=== PATIENT | female | born 1955 | race African-American/Black ===

== ENCOUNTER 2017-05-03 08:25 | Emergency (ER) | payer SELFPAY ==
[~2017-05-03] VITALS: Ht 170.2 cm; Wt 80.0 kg
[~2017-05-03 08:25] MED LIST: BIPOLAR MED; CIPR500T4 PO; HYPERTENSION MED; METHY5 PO; METR-1 PO
[2017-05-03 08:39] VITALS: BP 116/69; PULSE 88; RESP 19; TEMP 99.2; O2SAT 97
[2017-05-03] MEDS ORDERED: LAMO25 PO (08:46)
[2017-05-03] MEDS ORDERED: CITA40TA4 PO (08:46)
[2017-05-03] MEDS ORDERED: METHY5 PO (08:46)
[2017-05-03] MEDS ORDERED: ACETAMINOPHEN/HYDROcodone 325 MG/5 MG TAB PO ONE (09:00)
--- NOTE | 2017-05-03 09:18 | RADRPT ---
EXAM DATE/TIME: 05/03/2017 09:11 [facility] COMPARISON: No previous studies available for comparison. INDICATIONS : Right wrist pain after falling on lateral side. MEDICAL HISTORY : None. SURGICAL HISTORY : None. ENCOUNTER: Initial ACUITY: 1 day PAIN SCORE: 9/10 LOCATION: Right wrist FINDINGS: Three view examination of the right wrist demonstrates no soft tissue swelling, dislocation, or fract ure. The carpal bones are in normal alignment. The joint spaces are maintained. Bony mineralizatio n is normal. CONCLUSION: No definite fracture. Hira Wyman MD on May 03, 2017 at 9:17 Board Certified Radiologist. This report was verified electronically.
--- NOTE | 2017-05-03 09:18 | RADRPT ---
EXAM DATE/TIME: 05/03/2017 09:07 [facility] COMPARISON: No previous studies available for comparison. INDICATIONS : Right forearm pain after falling. MEDICAL HISTORY : None. SURGICAL HISTORY : None. ENCOUNTER: Initial ACUITY: 1 day PAIN SCORE: 8/10 LOCATION: Right forearm FINDINGS: Two view examination of the right forearm demonstrates minimal lucency involving the distal radius. N o proximal or mid shaft fractures of the radius or ulna. Bony mineralization is normal. The soft ti ssue structures are intact. CONCLUSION: 1. Minimal lucency involving the distal radius appears to be related to artifact. 2. No definite fracture. Hira Wyman MD on May 03, 2017 at 9:15 Board Certified Radiologist. This report was verified electronically.
--- NOTE | 2017-05-03 09:37 | RADRPT ---
EXAM DATE/TIME: 05/03/2017 09:17 [facility] COMPARISON: No previous studies available for comparison. INDICATIONS : Fall down stairs today. RADIATION DOSE: 33.34 CTDIvol (mGy) MEDICAL HISTORY : Hypertension. SURGICAL HISTORY : None. ENCOUNTER: Initial ACUITY: 1 day PAIN SCALE: 5/10 LOCATION: Left occipital TECHNIQUE: Multiple contiguous axial images were obtained of the head. Using automated exposure control and adj ustment of the mA and/or kV according to patient size, radiation dose was kept as low as reasonably a chievable to obtain optimal diagnostic quality images. DICOM format image data is available electro nically for review and comparison. FINDINGS: CEREBRUM: The ventricles are normal for age. No evidence of midline shift, mass lesion, hemorrhage or acute in farction. No extra-axial fluid collections are seen. POSTERIOR FOSSA: The cerebellum and brainstem are intact. The 4th ventricle is midline. The cerebellopontine angle i s unremarkable. EXTRACRANIAL: The visualized portion of the orbits is intact. SKULL: The calvaria is intact. No evidence of skull fracture. CONCLUSION: Normal examination. Shawn Gomez MD on May 03, 2017 at 9:34 Board Certified Radiologist. This report was verified electronically.
--- NOTE | 2017-05-03 09:51 | RADRPT ---
EXAM DATE/TIME: 05/03/2017 09:17 [facility] COMPARISON: No previous studies available for comparison. INDICATIONS : Fall down stairs today. Neck pain. RADIATION DOSE: 14.98 CTDIvol (mGy) MEDICAL HISTORY : Hypertension. SURGICAL HISTORY : None. ENCOUNTER: Initial ACUITY: 1 day PAIN SCALE: 5/10 LOCATION: neck TECHNIQUE: Volumetric scanning of the cervical spine was performed. Multiplanar reconstructions in the sagittal, coronal and oblique axial planes were performed. Using automated exposure control and adjustment o f the mA and/or kV according to patient size, radiation dose was kept as low as reasonably achievable to obtain optimal diagnostic quality images. DICOM format image data is available electronically f or review and comparison. FINDINGS: Cervical spine alignment is satisfactory. There is no evidence of spine fracture. No bony canal or fo raminal compromise is noted. There is prominent multilevel posterior facet arthropathy. No evidence o f paraspinal hematoma. CONCLUSION: No acute bony injury in the cervical spine. Shawn Gomez MD on May 03, 2017 at 9:48 Board Certified Radiologist. This report was verified electronically.
--- NOTE | 2017-05-03 10:03 | PD ---
HPI Chief Complaint: Fall Time Seen by Provider: 08:50 Travel History International Travel<30 days: No Contact w/Intl Traveler<30days: Yes Name of Country Traveled to: [place] Traveled to known affect area: No History of Present Illness HPI 62-year-old female came to the emergency room with history of trip and fall while she was walking on a curb. She fell with right hand outstretched and is complaining of right wrist pain. She says she also bumped her head on the side rail and complaining of some headache and back of the neck pain. She was put in a c-collar. No loss of consciousness. She remembers the event. She is not on any blood thinners. [facility] Past Medical History Narrative Medical List of her past medical, surgical, social and family history is reviewed from the nursing note. ADD: Yes Bipolar Disorder: Yes Depression: Yes Diminished Hearing: No Hypertension: Yes Influenza Vaccination: No Menopausal: Yes Past Surgical History Surgical History: No Previous Surgery Social History Alcohol Use: Yes (2 glasses of wine/night) Tobacco Use: Yes (e-cig) Substance Use: No Allergies-Medications (Allergen,Severity, Reaction): Uncoded Allergies: unknow antibiotic (Allergy, Mild, Itching, 05/03/17) Comments List of her allergies reviewed from the nursing note. Reported Meds & Prescriptions Reported Meds & Active Scripts Active Reported Ritalin IR (Methylphenidate HCl) 5 Mg Tab 5 Mg PO BIDAC Lamictal (Lamotrigine) 25 Mg Tab 25 Mg PO DAILY Citalopram (Citalopram Hydrobromide) 40 Mg Tab 40 Mg PO DAILY [Hypertension Med] Narrative Medication List of her home medications reviewed from the nursing note. Review of Systems Except as stated in HPI: all other systems reviewed are Neg Physical Exam Narrative GENERAL: Awake, alert, moderate distress, Lyon collar SKIN: Focused skin assessment warm/dry. HEAD: Atraumatic. Normocephalic. EYES: Pupils equal and round. No scleral icterus. No injection or drainage. ENT: No nasal bleeding or discharge. Mucous membranes pink and moist. NECK: Trachea midline. No JVD. CARDIOVASCULAR: Regular rate and rhythm. No murmur appreciated. RESPIRATORY: No accessory muscle use. Clear to auscultation. Breath sounds equal bilaterally. GASTROINTESTINAL: Abdomen soft, non-tender, nondistended. Hepatic and splenic margins not palpable. MUSCULOSKELETAL: No obvious deformities. No clubbing. No cyanosis. No edema. Tenderness on the distal radial aspect and the wrist joint. His range of motion due to the pain at the wrist joint. Distal neurovascular intact. NEUROLOGICAL: Awake and alert. No obvious cranial nerve deficits. Motor grossly within normal limits. Normal speech. PSYCHIATRIC: Appropriate mood and affect; insight and judgment normal. Data Data Last Documented VS Vital Signs Date Time Temp Pulse Resp B/P (MAP) Pulse Ox O2 Delivery O2 Flow Rate FiO2 05/03/17 10:22 05/03/17 08:39 99.2 88 19 97 Room Air Orders Orders Ct Brain W/O Iv Contrast(Rout) (05/03/17 ) Ct Cerv Spine W/O Contrast (05/03/17 ) Wrist, Complete ([id number]) (05/03/17 ) Acetamin-Hydrocod 325-5 Mg ([place] 5-325 (05/03/17 09:00) Forearm (2vws) (05/03/17 ) Splinting (05/03/17 ) Fiberglass Sug[place]ong Sp Ad Arm (05/03/17 ) Sling Cradle Arm (05/03/17 ) Collar Lyon (05/03/17 ) Collar [place] (05/03/17 ) MDM Medical Decision Making Medical Screen Exam Complete: Yes Emergency Medical Condition: Yes Medical Record Reviewed: Yes Differential Diagnosis Wrist fracture, cervical fracture, intracranial bleed, wrist strain Narrative Course 10:16 AM patient will get a splint for the wrist. She will be discharged home Procedures EKG Prior to Arrival: No Diagnosis Primary Impression: Fall Qualified Codes: W19.XXXA - Unspecified fall, initial encounter Additional Impression: Wrist sprain Qualified Codes: S63.501A - Unspecified sprain of right wrist, initial encounter Referrals: Yuko Rogers MD 1 week Additional Instructions: Please keep the splint clean and dry. Follow-up with the orthopedist was name and number been given to you. You have to call them to make an appointment. Follow-up with your primary care. Take Advil/Motrin/Tylenol for pain relief. Apply ice pack to the wrist 20 minutes on and 20 minutes off to keep the swelling and pain down. Keep the arm elevated above the heart level. Med/Other Pt SpecificInfo: No Change to Meds Disposition: 01 DISCHARGE HOME Condition: Stable Kamaljit Sierra MD May 03, 2017 10:03
== END 2017-05-03 10:23 | disposition home or self-care (01) ==
LOC: NEPE 08:25
DX: S63.501A Unspecified sprain of right wrist, initial encounter (principal); R51 Headache; M54.2 Cervicalgia; I10 Essential (primary) hypertension; W01.198A Fall on same level from slipping, tripping and stumbling with subsequent striking against other object, initial encounter; Y93.01 Activity, walking, marching and hiking; Y92.480 Sidewalk as the place of occurrence of the external cause; Z91.81 History of falling
CPT/HCPCS: 29125; 70450; 72125; 73090; 73110; 99285; L0150